=== PATIENT | female | born 1955 | race Caucasian/White ===

== ENCOUNTER 2018-04-01 08:12 | Day surgery (SDC) | payer MEDICARE, OTHER, SELFPAY ==
[2018-03-29 13:01] VITALS: BMI 38.9
--- NOTE | 2018-04-01 | PATH_ITS ---
[facility] Accession Number: [id number] . 01 Material submitted: . RIGHT WRIST GANGLION CYST . 02 Diagnosis: Right Wrist, Cyst, Biopsy: Consistent with ganglion cyst. [facility]/04/03/2018 . 02 Electronically signed: . Anahi Amaya MD, Pathologist NPI- [id number] . 01 Gross description: . Received one formalin-filled container, labeled with the patient's name, labeled right ganglion cyst. The specimen consists of a yellow-dvoe to dove-martinez portion of soft tissue which measures 2.5 x 0.9 x 0.5 cm. The specimen is inked blue, sectioned into multiple pieces, and entirely submitted in two cassettes. ([id number]) /FRR . 02 Pathologist provided ICD-10: M67.431 . 02 CPT . 864128 Performed at: 01 [facility] [address] [id number] MD Jose Sharp MD Phone: [phone] Performed at: 02 [facility] [address] [place], [place] [id number] MD Dejuan Carcamo MD Phone: [phone]
[2018-04-01 08:56] VITALS: BP 140/88; PULSE 100; RESP 16; TEMP 36.3; O2SAT 93; BMI 36.9
[2018-04-01] MEDS: LACTATED RINGERS 1,000 ML 42 ML IV (09:08)
[2018-04-01] MEDS: BUPIVACAINE 0.5% W/ EPI (PF) 30 ML VIAL INJ (10:59)
[2018-04-01 11:12] VITALS: BP 124/70; PULSE 88; RESP 10; TEMP 36.1; O2SAT 94
[2018-04-01 11:16] VITALS: BP 117/74; PULSE 87; RESP 10; O2SAT 95
[2018-04-01 11:22] VITALS: BP 103/52; PULSE 89; RESP 14; O2SAT 96
--- NOTE | 2018-04-01 11:23 | PM.OP.1 ---
Operative Date/Time/Diagnoses - Date of procedure: 04/01/18 Time of procedure: 11:24 Pre-op diagnosis: Right wrist volar ganglion cyst Post-op diagnosis: same Procedure & Clinicians Procedure: Right wrist volar ganglion cyst excision Same procedure as scheduled: Yes Indications: Right wrist volar ganglion cyst Surgeon: Zane Valverde Click Yes if Unassisted: Yes Anesthesia Type: General Operative Notes Findings: Ganglion cyst involving the volar aspect of the right wrist. Also scar tissue from previous basal thumb surgery. Closure Type: primary Specimen(s): other Estimated Blood Loss (mL): 5 Blood products transfused: none Tourniquet time (min): 22 Procedure in detail: On date of service, patient was met in the holding area. Operative site was signed and witnessed by the OR staff. The surgery once again discussed with patient and any remaining questions they had were answered fully. Patient was taken back to the operating theater and placed on the operating table in the supine position. Great care taken to ensure that all bony prominences were properly padded. A well-padded tourniquet was placed up along the upper extremity. A timeout was performed to verify patient's name, procedure, and operative site. The upper extremity was then prepped and draped in the normal sterile fashion. An Esmarch was used to exsanguinate the limb and the tourniquet was turned up to 250 mm mercury. A hockey stick type incision was made over the ganglion cyst. This was extended from her previous incision. 15 blade was used to incise the skin and fascial tissue. Pickups and tenotomy scissors dissect down through the fascia. The ganglion cyst had 2 lobes. One lobe was very superficial. This was freed up and a 360? fashion. Deep and proximal to the lobe was a the second lobular extension. It was rather deep but no sign of tracking into the radiocarpal joint. This was also freed up 360? fashion. The entire cyst as well as the scar tissue was removed all in 1 large piece. The incision was explored and no sign of any additional cyst material. The wound was then copiously irrigated. It was then closed in layered fashion. The hand was then cleaned, dried, and dressed. A splint was placed. Patient was taken to the PACU in stable condition. Complications: none Condition: stable Disposition: PACU Plan for aftercare: No limits to range of motion. No lifting more than 2-3 lb for the next 2 weeks.
[2018-04-01 11:26] VITALS: BP 126/79; PULSE 91; RESP 16; O2SAT 94
[2018-04-01 11:37] VITALS: BP 117/76; PULSE 84; RESP 16; TEMP 36.2; O2SAT 92
== END 2018-04-01 11:49 | disposition home or self-care (01) ==
PROVIDERS: Visit Provider Orthopaedic Surgery
PROC: (CPT 26160; principal; 2018-04-01 09:45)
DX: M67.431 Ganglion, right wrist (principal); Z79.84 Long term (current) use of oral hypoglycemic drugs; I10 Essential (primary) hypertension
CPT/HCPCS: 25111; J1100; J2405; J2704; J3010

== ENCOUNTER → 2018-04-15 14:56 | Outpatient (CLI) | payer MEDICARE, OTHER, SELFPAY ==
--- NOTE | 2018-04-15 15:03 | DI.MRI.S_ITS ---
PROCEDURE: MR KNEE RT WO CON INDICATIONS: Posterior right knee pain with occasional catching sensation TECHNIQUE: Noncontrast sagittal PD fast spin echo and T2 fast spin echo with fat saturation, sagittal 3-D FLASH with fat saturation; coronal T1 spin echo and PD fast spin echo with fat saturation, and axial PD fast spin echo with fat saturation through the knee. COMPARISON: None. FINDINGS: Image quality: Excellent. Menisci: The medial and lateral menisci demonstrate mildly degenerated morphology and internal signal, greater laterally than medially, and there is elevated horizontally oriented fluid within the lateral meniscus at the mid body level, but not extending to the meniscal articular surface. Internal degeneration is the likely cause rather than meniscal tear. The meniscal root ligaments appear intact. Cruciate ligaments: The anterior and posterior cruciate ligaments appear intact. Medial structures: The medial collateral ligament appears intact. The posterior oblique ligament, semimembranosus tendon insertions, oblique popliteal ligament, and meniscocapsular junction appear intact. Visualized portions of the pes anserinus tendons appear normal. No abnormal bursal fluid. Lateral structures: The lateral collateral ligament, long and short heads of the biceps femoris tendon appear intact. The popliteus tendon appears normal; the popliteofibular ligament appears intact. The posterosuperior and anteroinferior popliteomeniscal fascicles appear intact. The arcuate and fabellofibular ligaments appear intact, on either side of the lateral inferior geniculate artery. Iliotibial band appears normal. Anterior structures: The quadriceps and patellar tendons appear intact. Patellar alignment is normal. No femoral trochlear dysplasia or ventral trochlear prominence. No edema in the infrapatellar fat pad. Bones and cartilage: No bone marrow contusions or fractures. The cartilage of the medial and lateral femorotibial compartments, as well as the patellofemoral compartment, appears mildly reduced in thickness, best seen at the lateral compartment where mild to moderate degenerative osteoarthritic joint space thinning is present. Joint space: There is a small excess of knee joint fluid without intra-articular loose body. No Leal's cyst. Normal appearing synovial plicae are incidentally noted. 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 No intra-articular loose body despite presence of a small joint effusion. Dictated by: Holden Ayers M.D. on 04/15/2018 at 16:47 Approved by: Holden Ayers M.D. on 04/15/2018 at 16:51
== END ==
PROVIDERS: Visit Provider Orthopaedic Surgery
DX: M25.561 Pain in right knee (principal); M17.11 Unilateral primary osteoarthritis, right knee
CPT/HCPCS: 73721

== ENCOUNTER 2019-04-04 11:11 | Day surgery (SDC) | payer MEDICARE, OTHER, SELFPAY ==
[2019-03-19 10:45] VITALS: BMI 36.4
[2019-04-04] VITALS (10 sets, daily range): BP systolic 120–137; BP diastolic 62–82; PULSE 77–98; RESP 11–18; TEMP 35.6–36.8; O2SAT 91–100; BMI 36.4
[2019-04-04] MEDS: LACTATED RINGERS 1,000 ML 42 ML IV (12:40)
--- NOTE | 2019-04-04 13:59 | SUR.PREOP ---
PT REFUSES FOR US TO CLEANS HER SKIN WITH THE CHLORHEXIDINE WIPES, AND SHE DOESNT WANT THE SCD'S ON HER LEGS THEY IRRITATE HER LEGS, WILL NOTIFY DR ARREDONDO.
--- NOTE | 2019-04-04 14:00 | PM.PREOP ---
Pre-operative Note Interval Note History & Physical reviewed/Exam performed by Physician: Yes Changes to H&P: No
[2019-04-04] MEDS: MIDAZOLAM 2 MG/2 ML VIAL IV (14:13)
[2019-04-04] MEDS: fentaNYL 100 MCG/2 ML INJ 50 MCG IV ×3 (14:14→16:24)
--- NOTE | 2019-04-04 14:25 | SUR.PREOP ---
Block start time [1413] . Monitoring initiated and maintained throughout procedure. Oxygen and medications given per anesthesiologist instructions. Patient remained stable throughout procedure, no adverse reactions noted. Block end time [1423].
[2019-04-04] MEDS: CEFAZOLIN 2 GM/100 ML FROZ.PIGGY IV (14:28)
--- NOTE | 2019-04-04 15:01 | SUR.OPER ---
Beach chair on padded OR bed. Head on gel donut secured with tape over gauze. Non-operative arm secured <90 degrees abduction on padded arm board. Pillow under knees. Safety belt at thigh. Cloth tape over blanket over lower legs.
--- NOTE | 2019-04-04 15:02 | SUR.OPER ---
Beach chair with skytron shoulder positioner. Lower body on padded OR bed. Head in foam padded head cradle, secured with straps. Non-operative arm secured <90 degrees abduction. Pillow under knees. Safety belt at thigh. Cloth tape over blanket over lower legs.
[2019-04-04] MEDS: BUPIVACAINE 0.5% W/ EPI (PF) VIAL 30 ML INJ (15:11)
[2019-04-04] MEDS: SODIUM CHLORIDE IRRIG SOLUTION 3,000 ML, EPINEPHrine 1 MG IRR (15:15)
--- NOTE | 2019-04-04 15:57 | P.OP_ITS ---
Operative Date/Time/Diagnoses Date of procedure: 04/04/19 Time of procedure: 14:29 Pre-op diagnosis: Right shoulder glenohumeral joint arthritis as well as AC joint arthritis and subacromial impingement. Post-op diagnosis: same Procedure & Clinicians Procedure: Arthroscopic extensive debridement of the right glenohumeral joint. Arthroscopic subacromial decompression as well as distal clavicle excision. Same procedure as scheduled: Yes Indications: Glenohumeral joint arthritis with AC joint arthritis. As well as signs of impingement. Surgeon: Zane Valverde Tissue Recovery Technician: Irene Robles Click Yes if Unassisted: No Anesthesia Type: General and Peripheral nerve block Operative Notes Findings: Large areas of grade 4 chondromalacia on both sides of the joint. Isolated area of full-thickness cartilage loss to the anterior aspect of the humeral head. Significant articular fraying of the supraspinatus. Infraspinatus and subscapularis show signs of tendinopathy but no significant partial tears. Fusion to the glenohumeral joint. Significant degenerative changes to the labrum. Some synovitis to the biceps tendon but no sign of any significant tears. Some inferior osteophytes off the humeral neck inferiorly. The inferior osteophytes off the distal clavicle as well as signs of AC joint arthritis. Significant bursitis in the subacromial and subdeltoid space. Mild bursal sided fraying of cuff but no sign of any high-grade partial tears. Closure Type: primary Specimen(s): none sent Estimated Blood Loss (mL): 5 Blood products transfused: none Procedure in detail: On date of service, Patient was met in the holding area. The operative site was signed and witnessed by the OR staff. The surgeries once again discussed with the patient and any remaining questions they had were answered fully. Patient was taken back to the operating theater and placed on the operating table in a supine position. Great care was taken to ensure that all bony prominences were properly padded. Patient was then placed into the reji chair position. The head and neck were properly positioned and secured. A timeout was performed verifying patient's name, procedure, and the operative site. The upper extremity was then prepped and draped in the normal sterile fashion. Previously, the bony anatomy and portal sites were marked out as well as injected with Marcaine with epinephrine. An 11 blade was used to make an incision in the posterior aspect of the shoulder. The camera was placed, and a diagnostic shoulder scope was performed. Findings listed above. Next under direct visualization, a anterior portal was made. Shaver was brought in and extensive debridement of the glenohumeral joint was performed. We debrided the full-thickness cartilage loss to the anterior aspect of the humeral head. There was some of loose cartilage flaps that were debrided. We also cleaned up some of the grade 4 chondromalacia signs on both sides of the joint. Patient had extensive degenerative changes to the labrum which were cleaned up as well. Patient had moderate grade partial-thickness tearing to the articular surface of the supraspinatus which was debrided with a shaver down to healthier rotator cuff tissue. Patient had an effusion to the glenohumeral joint which was irrigated and debrided out as well. Next the camera was placed into the subacromial space. A lateral portal was obtained under direct visualization. A combination of the shaver and vapor wand, a debridement of the inflamed tissue as well as inflamed bursa was performed. The lateral gutter was also cleaned out. This gave us good visualization of the bursal aspect of the rotator cuff as well as the acromial arch. There was an obvious impingement lesion in the acromial arch. There was fraying to the bursal side of the rotator cuff but no sign of any significant partial tearing. Next we turned our attention to the subacromial decompression. Next, a mechanical rasp was then used to do a subacromial decompression. This allowed us to convert the acromion to a type I acromial. This also allowed us to shave down the bony lesion in the acromial space. The rasp was placed into the lateral portal as well as the anterior portal in order to do a complete subacromial decompression. We next turned our attention to the distal clavicle. Using the shaver in the vapor wand we were able to clean out all the soft tissue around the distal clavicle as well as into the a.c. joint. This gave us good visualization of the arthritic changes to the distal clavicle as well as good of the a.c. joint allowing us to assess our distal clavicle excision. Of the inferior osteophytes coming off the distal clavicle. Using the mechanical rasp in the anterior portal, we were able to remove the inferior osteophytes as well as do a distal clavicle excision. The camera was then placed into the anterior portal which gave us a direct visualization of the a.c. joint allowing us to assess the distal clavicle excision. We then turned our attention to the rotator cuff tear. There was no signs of any bursal sided tears. The shoulder was then taken through range of motion and there was no sign of any additional impingement. Next, the suprascapular nerve was blocked. Patient's shoulder was then cleaned dried and dressed and patient was taken to the PACU in stable condition. Complications: none Condition: stable Disposition: PACU Plan for aftercare: Sling is just for comfort. No restrictions to range of motion. We will limit lifting for the next 6 weeks.
[2019-04-04] MEDS: HYDROCODONE/ACET 5/325 TABLET 1 TAB PO (16:23)
[2019-04-04] MEDS: HYDROMORPHONE 2 MG INJ 0.5 MG IV (16:45)
[2019-04-04] MEDS: hydrOXYzine 50 MG/ML INJ 25 MG IM (16:54)
[2019-04-04] MEDS: diphenhydrAMINE 25 MG TABLET PO (17:39)
== END 2019-04-04 17:45 | disposition home or self-care (01) ==
PROVIDERS: PCP Physician Assistant; Visit Provider Orthopaedic Surgery
PROC: (CPT 29805; principal; 2019-04-04 14:00)
DX: M75.41 Impingement syndrome of right shoulder (principal); M19.011 Primary osteoarthritis, right shoulder; M75.51 Bursitis of right shoulder
CPT/HCPCS: 29823; 29824; 29826; J0171; J0330; J0690; J1100; J1170; J2250; J2405; J2704; J3010; J3410

== ENCOUNTER → 2019-07-24 19:44 | Outpatient (CLI) | payer MEDICARE, OTHER, SELFPAY ==
--- NOTE | 2019-07-24 19:46 | DI.MRI.S_ITS ---
PROCEDURE: MR LUMBAR SPINE WO CON INDICATIONS: Spondylolisthesis,lumbral sacral region TECHNIQUE: Noncontrast sagittal T1 spin echo and T2 fast echo, sagittal STIR, axial T1 and T2 fast spin echo through the lumbar spine. In cases with scoliosis, additional coronal T2 fast spin echo may be performed. COMPARISON: [facility], CR, XR LUMBAR SPINE 2 OR 3 VIEWS, 07/16/2019, 8:46. FINDINGS: Image quality: Excellent. Alignment and Curvature: There is mild L5-S1 anterolisthesis. Bone Marrow: Marrow is of normal overall signal. No acute vertebral body compression fractures. Spinal Cord: Conus medullaris terminates at the L1 level. Visualized cord demonstrates normal signal and size. Paraspinous Soft Tissues: No paravertebral masses. L1-L2: Loss of the signal. Mild, diffuse disc bulge. No central stenosis. No neural foraminal narrowing. No neural compression. L2-L3: Loss of disc signal. Mild, diffuse disc bulge. No central stenosis. No neural foraminal narrowing. No neural compression. L3-L4: Loss of disc signal. Mild, diffuse disc bulge. Mild bilateral facet hypertrophy. No central stenosis. No neural foraminal narrowing. No neural compression. Foraminal annulus fissure is noted. L4-L5: Loss of the signal. Mild, diffuse disc bulge. Mild bilateral facet hypertrophy. No central stenosis. No neural foraminal narrowing. No neural compression. Left foraminal annulus fissure. L5-S1: Loss of disc signal and slight loss of disc height. Mild, diffuse disc bulge. Severe bilateral facet hypertrophy. Mild narrowing of the central canal. Severe bilateral neural foraminal narrowing with compression of the exiting L5 nerve roots. Multiple disc annular fissures. IMPRESSION: 1. Grade 1 L5-S1 spondylolisthesis. 2. Multilevel degenerative disc disease. 3. Multilevel facet arthropathy. 4. Mild L5-S1 central canal narrowing. 5. Severe bilateral L5-S1 neural foraminal narrowing. 6. Compression of the exiting bilateral L5 nerve roots secondary to neural foraminal narrowing. Dictated by: Ericka Trevizo MD, PhD on 07/25/2019 at 12:13 Approved by: Ericka Trevizo MD, PhD on 07/25/2019 at 12:45
--- NOTE | 2019-07-24 19:46 | DI.MRI.S_ITS ---
PROCEDURE: MR CERVICAL SPINE WO CON INDICATIONS: Spondylolisthesis,Lumbral sacral region TECHNIQUE: Noncontrast sagittal T1 spin echo and T2 fast spin echo, sagittal STIR, foraminal oblique sagittal T2 fast spin echo, and axial gradient echo or T2 fast spin echo through the cervical spine. COMPARISON: None. FINDINGS: Image quality: Excellent. Alignment and Curvature: There is normal bony alignment. Bone Marrow: Reactive endplate change is noted adjacent to DC for C5, C5-C6 and C6-C7 discs. Spinal Cord: Visualized spinal cord has normal size and signal. No cerebellar tonsillar herniation. Paraspinous Soft Tissues: No paravertebral masses. Prevertebral soft tissues are normal in thickness. C2-C3: Loss of this signal. Mild, diffuse disc bulge. Small central disc protrusion. Mild narrowing of the central canal. No neural foraminal narrowing. No neural compression. C3-C4: Loss of disc signal and slight loss of disc height. Mild, diffuse disc bulge. Small central disc protrusion. Mild to moderate bilateral facet hypertrophy. Mild bilateral uncovertebral joint hypertrophy. Mild to moderate narrowing of the central canal. Severe right and moderate left neural foraminal narrowing with compression of the exiting right C4 nerve root. C4-C5: Loss of disc signal and height. Moderate, diffuse disc bulge. Moderate right and mild left facet hypertrophy. Mild right and moderate left uncovertebral joint hypertrophy. Moderate to severe narrowing of the central canal. Severe bilateral neural foraminal narrowing and compression of the exiting C5 nerve roots. C5-C6: Loss of disc signal and height. Moderate, diffuse disc bulge. Right central disc protrusion. Moderate bilateral facet hypertrophy. Mild bilateral uncovertebral joint hypertrophy. Severe narrowing of the central canal with slight compression of the cervical spinal cord. Severe right and mild left neural foraminal narrowing with compression of the exiting right C6 nerve root. C6-C7: Loss of disc signal and height. Minimal, diffuse disc bulge. No central stenosis. No neural foraminal narrowing. No neural compression. C7-T1: Loss of disc signal. Mild, diffuse disc bulge. No central stenosis. No neural foraminal narrowing. No neural compression. IMPRESSION: 1. Multilevel degenerative disc disease. 2. Multilevel facet and uncovertebral arthropathy. 3. Severe C5-C6 central canal narrowing. Moderate to severe C4-C5 central canal narrowing. Mild to moderate C3-C4 central canal narrowing. Mild C2 and C3 central canal narrowing. 4. Mild compression of the cervical spinal cord below the C5-C6 disc secondary to central canal narrowing. 5. Compression of the exiting right C4 nerve root, exiting bilateral C5 nerve roots and exiting right C6 nerve root secondary to neural foraminal narrowing Dictated by: Ericka Trevizo MD, PhD on 07/25/2019 at 9:08 Approved by: Ericka Trevizo MD, PhD on 07/25/2019 at 9:14
== END ==
PROVIDERS: PCP Physician Assistant; Visit Provider Orthopaedic Surgery
DX: M43.17 Spondylolisthesis, lumbosacral region (principal); M50.31 Other cervical disc degeneration, high cervical region; M48.02 Spinal stenosis, cervical region; M47.812 Spondylosis without myelopathy or radiculopathy, cervical region; M51.36 Other intervertebral disc degeneration, lumbar region; M51.37 Other intervertebral disc degeneration, lumbosacral region; M47.816 Spondylosis without myelopathy or radiculopathy, lumbar region; M47.817 Spondylosis without myelopathy or radiculopathy, lumbosacral region; M48.061 Spinal stenosis, lumbar region without neurogenic claudication; M48.07 Spinal stenosis, lumbosacral region
CPT/HCPCS: 72141; 72148